=== PATIENT | female | born 1980 | race Hispanic/Latino ===

== ENCOUNTER 2019-02-07 13:14 | Emergency (ER) | payer OTHER, SELFPAY ==
[2019-02-07] MEDS ORDERED: Ibuprofen 800 MG TAB ONE (14:31)
--- NOTE | 2019-02-07 14:47 | RAD ---
XR Wrist 3 Rt View STANDARD History: Injury Comparison: None. Findings: No acute fracture or malalignment. No significant joint effusion. No evidence for synovitis . No erosions or periostitis. Impression: No acute osseous abnormality.
== END 2019-02-07 15:02 | disposition home or self-care (01) ==
LOC: MADERS 13:14
DX: S63.501A Unspecified sprain of right wrist, initial encounter (principal); W01.0XXA Fall on same level from slipping, tripping and stumbling without subsequent striking against object, initial encounter

== ENCOUNTER 2019-02-18 10:06 | Emergency (ER) | payer SELFPAY ==
[2019-02-18 11:29] LABS: ALT (SGPT) 48 U/L (8-55); AST (SGOT) 22 U/L (5-34); Albumin 4.4 g/dL (3.5-5.0); Alkaline Phosphatase 113 U/L (40-150); Anion Gap 17 mmol/L (10-20); BUN (Urea Nitrogen) 6 mg/dL (7.0-18.7); Bilirubin, Total 1.4 mg/dL (0.2-1.2); Calc. Creatinine Clearance 0 mL/min (70-130); Calcium 9.7 mg/dL (7.8-10.44); Carbon Dioxide 24 mmol/L (22-29); Chloride 105 mmol/L (98-107); Estimated GFR-MDRD Greater than 90; Globulin 3.2 g/dL (2.4-3.5); Glucose 97 mg/dL (70-105); Potassium 3.9 mmol/L (3.5-5.1); Protein, Total 7.6 g/dL (6.0-8.3); Sodium 142 mmol/L (136-145)
[2019-02-18 11:31] LABS: BHCG - Serum Indeterminate (NEGATIVE); Pregs Control Background? CLEAR/WHITE (CLR/WHITE); Pregs Control Bar Appear? YES (CONTROL BAR)
[2019-02-18] MEDS ORDERED: Metoclopramide HCl 10 MG/2 ML VIAL ONE (11:40)
[2019-02-18] MEDS ORDERED: Lorazepam 1 MG TAB ONE (11:40)
== END 2019-02-18 13:05 | disposition home or self-care (01) ==
LOC: MADERS 10:06
DX: R03.0 Elevated blood-pressure reading, without diagnosis of hypertension (principal); R51 Headache
CPT/HCPCS: 36415; 80053; 84702; 84703; 96372; 99283; J2765

== ENCOUNTER 2019-03-01 08:22 | Outpatient (CLI) | payer SELFPAY ==
[2019-03-01 09:08] LABS: #Eosinphils 0.1 thou/uL (0.0-0.7); #Lymphocytes 1.6 thou/uL (1.20-3.40); #Monocytes 0.3 thou/uL (0.11-0.59); #Neutrophils 2.4 thou/uL (1.40-6.50); %Basophils 0.8 % (0.0-1.0); %Eosinophils 1.5 % (0.0-10.0); %Lymphocytes 36.8 % (21.0-51.0); %Monocytes 7.7 % (0.0-10.0); %Neutrophils 53.2 % (42.0-75.0); Hemoglobin 12.7 g/dL (12.0-16.0); Mean Corpuscular HGB CONC 32.7 g/dL (32.0-36.0); Mean Corpuscular Hemoglobin 29.5 pg (27.0-31.0); Mean Corpuscular Volume 90.1 fL (78.0-98.0); Mean Platelet Volume 10.1 fL (7.4-10.4); Platelet Count 209 thou/uL (130-400); RBC Distribution Width 12.3 % (11.5-14.5); Red Blood Cell (RBC) Count 4.31 mill/uL (4.20-5.40); White Blood Cell (WBC) Count 4.5 thou/uL (4.8-10.8)
[2019-03-01 09:18] LABS: ALT (SGPT) 32 U/L (8-55); AST (SGOT) 19 U/L (5-34); Albumin 4.3 g/dL (3.5-5.0); Alkaline Phosphatase 103 U/L (40-110); Anion Gap 11 mmol/L (10-20); BUN (Urea Nitrogen) 8 mg/dL (7.0-18.7); Bilirubin, Total 1.3 mg/dL (0.2-1.2); Calc. Creatinine Clearance 0 mL/min (70-130); Calcium 9.4 mg/dL (7.8-10.44); Carbon Dioxide 25 mmol/L (22-29); Cardiac Risk 2.9 (Less than 4.5); Chloride 108 mmol/L (98-107); Cholesterol 193 mg/dl (< 200 Desired); Estimated GFR-MDRD Greater than 90; Globulin 3.3 g/dL (2.4-3.5); Glucose 90 mg/dL (70-105); HDL Cholesterol 67 mg/dL (>60 Neg Risk); LDL Cholesterol, Calculated 111 mg/dL; Potassium 3.9 mmol/L (3.5-5.1); Protein, Total 7.6 g/dL (6.0-8.3); Sodium 140 mmol/L (136-145); Triglycerides 74 mg/dL (Less than 150)
[2019-03-01 15:17] LABS: Hemoglobin A1c 5.1 % (4.0-6.0)
[2019-03-01 15:39] LABS: Vitamin D, 25 Hydroxy 15.2 ng/ml (> 30.0)
== END 2019-03-01 08:23 | disposition home or self-care (01) ==
LOC: MADLAB 08:22
PROVIDERS: ATTEND Family Medicine
DX: Z01.419 Encounter for gynecological examination (general) (routine) without abnormal findings (principal)
CPT/HCPCS: 36415; 80053; 80061; 82306; 83036; 84443; 85025

== ENCOUNTER 2019-03-31 16:06 | Emergency (ER) | payer OTHER, SELFPAY | END 2019-03-31 16:25 | disposition home or self-care (01) | LOC: MADERS 16:06 | DX: R51 Headache (principal) | CPT/HCPCS: 99283 ==

== ENCOUNTER 2022-03-05 19:12 | Emergency (ER) | payer OTHER ==
[2022-03-05] MEDS ORDERED: Ondansetron ODT 4 MG TAB ONE (20:40)
[2022-03-05] MEDS ORDERED: Meclizine HCl 25 MG TAB ONE (20:40)
== END 2022-03-05 22:59 | disposition home or self-care (01) ==
LOC: MADERS 19:12
DX: H81.10 Benign paroxysmal vertigo, unspecified ear (principal); R11.2 Nausea with vomiting, unspecified
CPT/HCPCS: 99283; Q0162

== ENCOUNTER 2022-08-30 07:42 | Emergency (ER) | payer OTHER ==
[2022-08-30] MEDS ORDERED: Ibuprofen 800 MG TAB ONE (08:37)
== END 2022-08-30 08:42 | disposition home or self-care (01) ==
LOC: MADERS 07:42
DX: M79.632 Pain in left forearm (principal); I10 Essential (primary) hypertension

== ENCOUNTER 2023-04-19 04:43 | Emergency (ER) | payer OTHER ==
[2023-04-19] MEDS ORDERED: Acetaminophen 500 MG TAB ONE (05:28)
== END 2023-04-19 06:07 | disposition home or self-care (01) ==
LOC: MADERS 04:43
DX: J10.1 Influenza due to other identified influenza virus with other respiratory manifestations (principal); I10 Essential (primary) hypertension
CPT/HCPCS: 71045; 87804